=== PATIENT | male | born 1980 | race Caucasian/White ===

== ENCOUNTER → 2019-03-06 | Outpatient (CLI) | payer OTHER ==
[~2019-03-06] VITALS: Ht 180.3 cm; Wt 76.2 kg
[~2019-03-06] MED LIST: IBUPROFEN 200200 M1 PO; PROZAC20 MG PO; SILDENAFIL CIT100 MG PO; TYLENOL325 MG PO
[2019-03-06 14:27] VITALS: BP 139/92
--- NOTE | 2019-03-06 14:38 | NUR ---
Pain Clinic Assessment: 1. History of Osteoarthritis: History of Rheumatoid Arthritis: 2. Height: 5 ft. 11 in. 180.3 cm. Weight: 168.0 lb. oz. 76.204 kg. Patient's BMI: 23.4 3. Vital Signs: BP: 139/92 Pulse: 70 Resp: 14 Temp: 02 Sat: 99 ECG Mon: 4. Pain Intensity: 7 5. Fall Risk: Dizziness: N Needs help standing or walking: N Fallen in the last 3 months: N Fall risk comments: 6. Patient on Blood Thinner: None 7. History of Hypertension: N 8. Opioid Therapy greater than 6 weeks: N Opiate Contract Signed: 9. Risk Assessment Tool Provided: 10. Functional Assessment Tool: 11. Recreational Drug Use: Never Drug Type: Tobacco Use: Never Smoker Tobacco Type: Amount or Packs/day: How Many Years: Alcohol Use: Yes Frequency: Weekly Quant: 4-5
--- NOTE | 2019-03-07 09:13 | HPC ---
[facility] [place] [address] PAIN MANAGEMENT CONSULTATION Name: JOEY MANE Room #: REG Jorden Thea#: [id number] Admission: 03/06/19 ������������������ Attend Phys: Kevin Vazquez DO Discharge: ������������������ Date of : 78 Report #: [id number] THIS REPORT FOR: //name// CC: [facility] physician/PCP Kevin Vazquez DATE OF SERVICE: 03/06/2019 CHIEF COMPLAINT: Low back pain and left lower extremity pain with paresthesias. HISTORY OF PRESENT ILLNESS: As you know, the patient is a very pleasant 38-year-old male who reports acute onset of low back pain, left lower extremity pain with paresthesias that began somewhere around April 2018. The patient states the pain began spontaneously. There was no preceding injury or trauma. The patient believes that his symptoms have progressively worsened over the past couple of months. He is now placing his pain score at approximately 7/10. The patient has trialled physical therapy for which he has done up to 6 weeks of formalized programs and continues to do stretching and strengthening exercises at home. He is trying chiropractic manipulation and massage therapy. Despite all these conservative treatment. He has not seen significant or prolonged improvement in symptoms. Due to lack of improvement with conservative treatment, the patient was sent to our clinic to discuss treatment options. The patient indicates today pain is continuous and constant. He describes the pain as burning, shooting, throbbing, sharp, stabbing, tender, numbness and tingling. Places current pain score 7/10, daily average is 7/10, worst pain has been is 9/10. The patient states that standing exacerbates symptoms and sitting, repositioning tends to improve pain. He has been referred to our clinic to discuss treatment options for suspected lumbar radiculopathy. PAST MEDICAL HISTORY: 1. Hypothyroidism. 2. Depression. PAST SURGICAL HISTORY: Knee surgery and uvuloplasty. SOCIAL HISTORY: The patient denies tobacco, IV or illicit drug use. Admits to approximately 5 alcoholic beverages per week. 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 He is working, not receiving workmen's compensation nor is he trying to obtain disability benefits. He is not in litigation in regards to pain. He is unaccompanied at today's visit. REVIEW OF SYSTEMS: Positive for frequent urination, nocturia, history of kidney stones, thyroid disease, heat and cold intolerance, low back pain and left lower extremity pain with paresthesias. All other review of systems negative per 12-point review of systems other than those listed in the history of present [address] [address] PAIN MANAGEMENT CONSULTATION Name: JOEY MANE Room #: REG [facility].#: [id number] Admission: 03/06/19 ������������������ Attend Phys: Kevin Vazquez DO Discharge: ������������������ Date of : 78 Report #: [id number] illness. PAIN SCORE: Pain impact score 33/70 indicating moderate interference of daily activities secondary to pain. ALLERGIES: No known drug allergies. CURRENT MEDICATIONS: Ibuprofen 200 mg 3 tabs b.i.d., fluoxetine 20 mg once a day and Cialis 100 mg once a day. IMAGING DATA: No imaging available. PHYSICAL EXAMINATION: VITAL SIGNS: Blood pressure 139/92, pulse is 70 and respiratory rate 14 and unlabored. The patient is 99% on room air. Height 5 feet 11 inches tall, weight 168 pounds and BMI calculated 23.4. GENERAL: Well-developed, well-nourished and well-hydrated 38-year-old male appearing stated age, placing current pain score 7/10. HEENT: Normocephalic and atraumatic. Pupils equal, round and reactive to light. Extraocular muscles are intact. Sclerae nonicteric without injection. NEUROLOGICAL: Cranial nerves 2 through 12 grossly intact. Speech is fluent. The patient deemed an excellent historian. LUNGS: Clear. No wheeze, rhonchi or rales. CARDIOVASCULAR: Regular. No appreciable gallop. No rub. ABDOMEN: Soft, nontender and nondistended. EXTREMITIES: Show no clubbing, no cyanosis and no edema. MUSCULOSKELETAL: Lower extremity strength equal and symmetrical 5/5. He is intact to light touch from L1 through S2 dermatomes. Muscle bulk and tone equal and symmetrical when comparing left lower extremity to right. Seated straight leg raising negative. Supine straight leg raising positive on the left. Filipe's test negative. Modified Gaenslen's positive for axial low back pain. Ankle clonus negative. Babinski is negative. Gait slightly antalgic favoring left lower extremity over right. Stance normal. No loss of lordotic curvature. ASSESSMENT: 1. Symptomatic lumbar radiculopathy. 2. Chronic low back pain. 3. Chronic intractable pain. PLAN: 1. Based on today's physical exam and history the patient provides, the description the patient uses in regards to pain as well as location of symptoms and the provocating factors, the likely source of the patient's pain is lumbar radiculopathy. The distribution of symptoms the patient is experiencing appears to be along the S1 dermatomal distribution with pain radiating from the low back down the left leg to the underside of the left foot, which would correlate to S1 [address] [address] PAIN MANAGEMENT CONSULTATION Name: JOEY MANE Room #: REG IAM Sidhu#: [id number] Admission: 03/06/19 ������������������ Attend Phys: Kevin Vazquez DO Discharge: ������������������ Date of : 78 Report #: [id number] distribution. We discussed with the patient treatment options for lumbar radiculopathy without inciting injury or trauma. The following was discussed today. We discussed physical therapy, stretching exercise, core strengthening and possible use of traction techniques. We discussed medication management adding a neuropathic pain medication and a more potent and consistent use of nonsteroidal anti-inflammatories. We discussed lumbar epidural injections under fluoroscopic guidance as a way to treat the symptoms directly. We also discussed surgical options including spinal cord stimulator therapy and traditional neurosurgery intervention. After reviewing the risks and benefits of all proposed treatment options, the patient chose to begin with medication management and further imaging. 2. The patient will be sent for x-ray imaging of the lumbar spine. We will obtain AP and lateral imaging of the lumbar area today. The patient underwent the imaging study only moments after leaving our clinic, I am pleased to advise the patient there are no new compression fractures. The vertebral body heights appear fairly well maintained and intervertebral spaces appear preserved. There are some mild arthritic changes noted. Further imaging will be necessary as we cannot see the soft tissue in this imaging study and the patient's symptoms do appear to be dermatomal in distribution. 3. The patient will be sent for MRI of the lumbar spine without contrast. Differential diagnosis, lumbar radiculopathy with left-sided S1 distribution. The patient will undergo this imaging as quickly as possible. Once the imaging has been completed, the patient will contact our clinic. We will have him return to review those findings. 4. The patient was provided samples of Lyrica 75 mg dose. He was given samples to begin at 75 mg once a night, then continue for 3 nights. If no improvement in symptoms, no side effects such as somnolence, decrease in mental acuity, disorientation or confusion, we would then escalate dose to 150 mg. The patient will contact the clinic with any side effects or concerns about the medication. 5. We will see the patient back in followup visit once he has completed his MRI of the lumbar spine. If findings are such, I would recommend the patient undergo a lumbar epidural injection to address lumbar radicular symptoms involving left lower extremity on an S1 distribution. We will begin the authorization process if necessary on this epidural injection. 6. We wish to thank you for the opportunity to see this patient in consultation. We will keep you apprised of response to treatment and the findings of his imaging studies. Again, we wish to thank you for the opportunity to see the patient in consultation. ��������������������������������������������� <ELECTRONICALLY SIGNED> ���������������������������������������� By: Kevin Vazquez DO ��������������������������������������������� 03/07/19 0913 [id number] Kevin Vazquez DO /nt
== END ==
LOC: PAIN 06:59
DX: M54.16 Radiculopathy, lumbar region (principal); G89.4 Chronic pain syndrome

== ENCOUNTER → 2019-03-21 | Outpatient (CLI) | payer OTHER ==
[~2019-03-21] VITALS: Ht 180.3 cm; Wt 76.0 kg
--- NOTE | ~2019-03-21 | HPC ---
[facility] [address] [address] PAIN MANAGEMENT CONSULTATION Name: ALHAJIJOEY Room #: REG IAM Chandrika.#: [id number] Admission: 03/21/19 ������������������ Attend Phys: Kevin Vazquez DO Discharge: ������������������ Date of : 78 Report #: [id number] THIS REPORT FOR: //name// CC: [facility] physician/PCP Kevin Vazquez DATE OF SERVICE: 03/21/2019 CHIEF COMPLAINT: Low back pain, left lower extremity pain and paresthesias. HISTORY OF PRESENT ILLNESS: As you know, the patient is a very pleasant 38-year-old male who returns today in followup visit to review his MRI, which we obtained on 03/15/2019 and to discuss options for treatment based on the noted pathology in this imaging study. We had concerns when we met the patient. He had some issues at the L5-S1 level, which has been borne out in the recent MRI. He returns to discuss the findings and treatment options. Today, the patient is reporting pain at a level of 4/10 at its worst. He denies injury or trauma that may have led to symptom occurrence. He returns to review his MRI and discuss treatment options. ALLERGIES: No reported drug allergies. CURRENT MEDICATIONS: Cialis 100 mg p.r.n., fluoxetine 20 mg per day, ibuprofen 200 mg 3 tabs twice a day, acetaminophen 325 mg 2 tabs every 4 hours p.r.n. pain. SOCIAL HISTORY: The patient denies tobacco, IV or illicit drug use. Admits to approximately 5 alcoholic beverages per week. 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 He is working, not receiving workmen's compensation, unaccompanied today. IMAGING: MRI lumbar spine obtained on 03/15/2019 shows L1-L2, L2-L3, L3-L4 unremarkable. L4-L5 has a mild bilateral facet degenerative changes, no evidence of disk herniation, central canal or neural foraminal stenosis. At L5-S1, there is a broad-based asymmetrical disk bulge protrusion in the left lateral recess extending approximately 4 mm posterior, narrowing the left lateral recess with impingement of the descending left S1 nerve root. Bilateral foramen are normal. PHYSICAL EXAMINATION: VITAL SIGNS: Blood pressure 129/85, pulse 61, respiratory rate 14 and unlabored. The patient is 100% on room air. Height 5 feet 11 inches tall, weight 167.6 pounds, BMI calculated 23.4. GENERAL: Well-developed, well-nourished, well-hydrated, 38-year-old male. He appears his stated age. He is placing current pain score at 4/10. HEENT: Normocephalic, atraumatic. Pupils equal, round, reactive to light. [facility] [address] [place] [address] PAIN MANAGEMENT CONSULTATION Name: JOEY MANE Room #: REG IAM Sidhu#: [id number] Admission: 03/21/19 ������������������ Attend Phys: Kevin Vazquez DO Discharge: ������������������ Date of : 78 Report #: [id number] Extraocular muscles are intact. Sclerae nonicteric without injection. NEUROLOGIC: Cranial nerves 2-12 grossly intact. Speech remains fluent. The patient deemed an excellent historian. EXTREMITIES: Show no clubbing, no cyanosis, and no edema. MUSCULOSKELETAL: Lower extremity strength is equal and symmetrical 5/5. Muscle bulk and tone equal and symmetrical when comparing left lower extremity to right. Seated straight leg raising is negative. Supine straight leg raising positive on the left. DIOGO test negative. Modified Gaenslen positive for axial low back pain. Ankle clonus negative. Babinski is negative. Gait mildly antalgic favoring left lower extremity over right. Stance normal. ASSESSMENT: 1. Symptomatic lumbar radiculopathy. 2. Displacement of lumbar intervertebral disk with radiculopathy. 3. Lumbosacral spondylosis with radiculopathy. 4. Chronic intractable pain. PLAN: 1. The patient returns today in followup visit where we have spent approximately 15 minutes of time reviewing the patient's MRI and correlating his MRI findings to his current distribution of pain. He is consistent with his pain along the S1 dermatomal distribution on the left, which correlates to the findings of his MRI. We have discussed with the patient treatment options based on this MRI. 2. We discussed physical therapy, stretching exercises, core strengthening and massage therapy as a treatment option. We discussed adjunctive treatment options such as acupuncture therapy and chiropractic manipulation as well as myofascial release techniques. We discussed medication management adding neuropathic pain medications and a consistent nonsteroidal anti-inflammatory for anti-inflammatory effects. We discussed lumbar epidural injection under fluoroscopic guidance, spinal cord stimulator therapy and ultimately surgical options. After reviewing risks and benefits of all proposed treatment options, the patient chose to move forward with a lumbar epidural injection. 3. The patient was advised risks and benefits of a lumbar epidural injection. These risks include, but are not necessarily limited to, bleeding, bruising, infection, worsening pain, no relief of pain, also risk of temporary or permanent muscle weakness, temporary or permanent nerve damage, possible paralysis, post-dural puncture headache and . The patient states he understood and wished to proceed. 4. No medication changes made at today's visit. The patient will continue current medical therapy as previously prescribed. 5. We will see the patient back in followup visit in approximately 31 days. At that time, review the efficacy of today's epidural injection and determine if next in the series of epidural injections may be necessary. DESCRIPTION OF PROCEDURE: L5-S1 left paramedian epidural steroid injection [facility] [address] [place] [address] PAIN MANAGEMENT CONSULTATION Name: JOEY MANE Room #: REG [facility].Dustin.#: [id number] Admission: 03/21/19 ������������������ Attend Phys: Kevin Vazquez DO Discharge: ������������������ Date of : 78 Report #: [id number] under fluoroscopic guidance. This is the first procedure of the first series that the patient is undergoing. After obtaining written consent, the patient was taken back to the fluoroscopy suite, placed in a prone position with pillow under the abdomen to decrease lumbar lordosis. The skin overlying the lumbosacral area was then prepped and draped in aseptic fashion. The L5-S1 vertebral interspace was then identified by AP fluoroscopy. The skin and subcutaneous tissue overlying the target site of injection was anesthetized with 3 mL 1% lidocaine. A 20-gauge 3-1/2 inch Tuohy needle was then advanced under fluoroscopic guidance towards the epidural space using a left paramedian approach. The epidural space was identified using loss of resistance to air technique. After negative aspiration for heme or cerebrospinal fluid, a total of 1 mL of Omnipaque was injected. A lumbar epidurogram was confirmed using both AP and lateral fluoroscopy. After negative aspiration for heme or cerebrospinal fluid, 5 mL of a solution containing 2 mL 40 mg per mL, 80 mg total triamcinolone and 3 mL of lidocaine 1% was injected in increments. Contrast spread was noted posterior epidural space. The needle was then retracted approximately half way and needle tract flushed with 1 mL of 1% lidocaine. Needle was then removed. There were no apparent sensory or motor deficits in the lower extremity following the procedure. A sterile bandage was placed over the injection site. The heart rate, pulse, oximetry and blood pressure were continuously monitored after the procedure. There were no apparent complications. The patient tolerated the procedure well and was carefully escorted to the recovery room in stable condition. There were no apparent complications. After meeting discharge criteria, the patient was then discharged home. ��������������������������������������������� ���������������������������������������� By: ��������������������������������������������� [id number] [id number] Kevin Vazquez DO /nt
[2019-03-21 08:43] VITALS: BP 129/85
--- NOTE | 2019-03-21 08:58 | NUR ---
Pain Clinic Assessment: 1. History of Osteoarthritis: NONE History of Rheumatoid Arthritis: NONE 2. Height: 5 ft. 11 in. 180.3 cm. Weight: 167.6 lb. oz. 76.023 kg. Patient's BMI: 23.4 3. Vital Signs: BP: 129/85 Pulse: 61 Resp: 14 Temp: 02 Sat: 100 ECG Mon: 4. Pain Intensity: 4-TODAY 5. Fall Risk: Dizziness: N Needs help standing or walking: N Fallen in the last 3 months: N Fall risk comments: 6. Patient on Blood Thinner: None 7. History of Hypertension: N 8. Opioid Therapy greater than 6 weeks: N Opiate Contract Signed: 9. Risk Assessment Tool Provided: 10. Functional Assessment Tool: 11. Recreational Drug Use: Never Drug Type: Tobacco Use: Never Smoker Tobacco Type: Amount or Packs/day: How Many Years: Alcohol Use: Yes Frequency: Special Occasions Quant: 2-3
== END | disposition home or self-care (01) ==
LOC: PAIN 03-13 07:11
DX: M51.16 Intervertebral disc disorders with radiculopathy, lumbar region (principal); M47.27 Other spondylosis with radiculopathy, lumbosacral region; G89.29 Other chronic pain